=== PATIENT | female | born 1955 | race Caucasian/White ===

== ENCOUNTER → 2020-05-25 06:51 | Outpatient (CLI) | payer MEDICARE, SELFPAY ==
[2020-05-25 08:30] LABS: Add Manual Diff / Slide Review NO; Basophils Absolute Auto 0 /uL (0-100); Basophils Percent Auto 0.6 % (0-2); Eosinophils Absolute Auto 100 /uL (0-450); Eosinophils Percent Auto 1.2 % (2-4); Hematocrit 44.4 % (36-46); Lymphocytes Absolute Auto 2500 /uL (1100-4500); Lymphocytes Percent Auto 29.7 % (25-40); Mean Corpuscular HGB Conc 33.8 % (30-36); Mean Corpuscular Hemoglobin 30.3 PG (26-34); Mean Corpuscular Volume 89.8 fL (80-100); Monocytes Absolute Auto 400 /uL (0-900); Neutrophils Absolute Auto 5300 /uL (1500-7000); Neutrophils Percent Auto 63.5 % (50-75); Platelet Count 368 X10^3/uL (150-400); Red Blood Cell Count 4.95 X10^6/uL (4.0-5.2); Red Cell Distribution Width 13.5 % (11.6-14.8); White Blood Cell Count 8.3 X10^3/uL (4.5-11.0)
[2020-05-25 08:47] LABS: Alanine Aminotransferase 21 IU/L (<35); Albumin 4.8 g/dL (3.5-5.0); Albumin Globulin Ratio 1.5 (1.0-2.8); Alkaline Phosphatase 83 U/L (38-126); Aspartate Aminotransferase 26 IU/L (14-36); BUN Creatinine Ratio 13.1 (6-22); Bilirubin Total 1.4 mg/dL (0.2-1.3); Blood Urea Nitrogen 11 mg/dL (7-17); Calcium 9.9 mg/dL (8.4-10.2); Carbon Dioxide 27 mmol/L (22-32); Chloride 107 mmol/L (98-107); Cholesterol 271 mg/dL (140-199); Estimated Glomerular Filt Rate > 60.0 mL/min (>60); Globulin 3.1 g/dL (1.7-4.1); Glucose 146 mg/dL (80-110); HDL Cholesterol 65 mg/dL (40-60); HEMOLYSIS < 15 (0-50); LDL Cholesterol Calculated 178 mg/dL (<100); Potassium 3.8 mmol/L (3.4-5.1); Sodium 141 mmol/L (137-145); Total Protein 7.9 g/dL (6.3-8.2); Triglycerides 142 mg/dL (35-150)
[2020-05-25 09:19] LABS: Free T4, Direct Thyroxine 1.04 ng/dL (0.78-2.19)
[2020-05-25 09:33] LABS: Thyroid Stimulating Hormone 2.53 uIU/mL (0.47-4.68)
== END ==
PROVIDERS: PCP Registered Nurse; Referring Provider Registered Nurse; Visit Provider Registered Nurse
DX: F32.9 Major depressive disorder, single episode, unspecified (principal); Z82.49 Family history of ischemic heart disease and other diseases of the circulatory system; F41.9 Anxiety disorder, unspecified
CPT/HCPCS: 36415; 80053; 80061; 84439; 84443; 85025

== ENCOUNTER → 2020-07-27 08:44 | Outpatient (CLI) | payer MEDICARE, SELFPAY ==
[2020-07-27 09:35] LABS: Hemoglobin A1C% w Est Avg Glu 5.5 % (4.0-6.0)
== END ==
PROVIDERS: PCP Registered Nurse; Referring Provider Registered Nurse; Visit Provider Registered Nurse
DX: R73.01 Impaired fasting glucose (principal)
CPT/HCPCS: 36415; 83036

== ENCOUNTER 2023-03-30 06:15 | Emergency (ER) | payer MEDICARE, SELFPAY ==
[2023-03-30] VITALS (55 sets, daily range): BP systolic 78–154; BP diastolic 49–106; PULSE 60–159; RESP 11–31; TEMP 36.6; O2SAT 93–100; BMI 24.0
--- NOTE | 2023-03-30 06:43 | DI.RAD.S_ITS ---
PROCEDURE: XR CHEST 1V INDICATIONS: new a fib with RVR TECHNIQUE: One view of the chest was acquired. COMPARISON: [facility], , CHEST 2 VIEW, 11/01/2014, 8:30. FINDINGS: Surgical changes and devices: None. Lungs and pleura: Right upper lung zone is lucent suggesting emphysema. Lungs are clear. No pleural effusions or pneumothorax. Mediastinum: Mediastinal contours appear normal. Heart size is normal. Bones and chest wall: No suspicious bony lesions. Overlying soft tissues appear unremarkable. IMPRESSION: No acute cardiopulmonary abnormality is seen. No significant discrepancy with the clam shucker radiology preliminary report. Dictated by: Akiko Krishnamurthy M.D. on 03/30/2023 at 8:32 Approved by: Akiko Krishnamurthy M.D. on 03/30/2023 at 8:32
[2023-03-30 06:50] LABS: Add Manual Diff / Slide Review NO; Basophils Absolute Auto 100 /uL (0-100); Basophils Percent Auto 1.1 % (0-2); Eosinophils Absolute Auto 200 /uL (0-450); Hemoglobin 13.5 g/dL (12.0-16.0); Lymphocytes Absolute Auto 3000 /uL (1100-4500); Mean Corpuscular HGB Conc 32.8 % (30-36); Mean Corpuscular Hemoglobin 29.4 PG (26-34); Mean Corpuscular Volume 89.6 fL (80-100); Monocytes Absolute Auto 300 /uL (0-900); Monocytes Percent Auto 3.7 % (3-14); Neutrophils Absolute Auto 3700 /uL (1500-7000); Neutrophils Percent Auto 51.2 % (50-75); Platelet Count 316 X10^3/uL (150-400); Red Blood Cell Count 4.58 X10^6/uL (4.0-5.2); Red Cell Distribution Width 13.4 % (11.6-14.8); White Blood Cell Count 7.2 X10^3/uL (4.5-11.0)
[2023-03-30 06:57] LABS: Alanine Aminotransferase 40 IU/L (<35); Albumin 4.3 g/dL (3.5-5.0); Albumin Globulin Ratio 1.8 (1.0-2.8); Alkaline Phosphatase 57 U/L (38-126); BUN Creatinine Ratio 11.1 (6-22); Bilirubin Total 0.8 mg/dL (0.2-1.3); Blood Urea Nitrogen 8 mg/dL (7-17); Carbon Dioxide 17 mmol/L (22-32); Chloride 106 mmol/L (98-107); Estimated Glomerular Filt Rate > 60 mL/min (>60); Globulin 2.4 g/dL (1.7-4.1); Glucose 294 mg/dL (80-110); Potassium 3.3 mmol/L (3.4-5.1); Sodium 139 mmol/L (137-145); Total Protein 6.7 g/dL (6.3-8.2)
[2023-03-30 06:59] LABS: D Dimer 500 ng/ml (<500)
[2023-03-30] MEDS: dilTIAZem 5 MG/ML SDV 20 MG IV (07:05)
[2023-03-30 07:08] LABS: NT-proBNP (BNP-Adult 18+) 175 pg/mL (<125); Troponin I < 0.012 ng/mL (0.01-0.034)
[2023-03-30] MEDS: LORazepam 2 MG/ML INJ 1 MG IV (07:23)
[2023-03-30] MEDS: DILTIAZEM 125 MG/125 ML PIGGYBACK IV (07:33)
--- NOTE | 2023-03-30 07:33 | ED.ARRPALP ---
HPI - Arrhythmia/Palpitations General Chief Complaint: Arrhythmia/Palpitations Stated Complaint: rapid heart rate Time Seen by Provider: 03/30/23 06:20 Source: patient, family and EMS Mode of arrival: EMS Limitations: no limitations History of Present Illness HPI narrative: Patient is a 67-year-old female. Has no diagnosed medical problems. Does not go to the doctor. Was at her normal state of health when she woke up this morning. Shortly after waking up she suddenly started to feel like her heart was beating fast. When EMS arrived they found her to have a heart rate into the 260's. She received 6 mg of adenosine and then 12 mg of adenosine. This improved her heart rate to less than 200. She then received 25 mg of diltiazem. Her heart rate improved to the 100s to 130s. Upon arrival here heart rate was elevated once again. She is feeling the palpitations. Some minor chest discomfort. No lightheadedness. This is never happened to her before. She does have history of anxiety in his also feeling very anxious. Related Data Home Medications Medication Instructions Recorded Confirmed multivitamin 1 tab PO DAILY 05/18/20 06/01/20 Previous Rx's Medication Instructions Recorded citalopram 20 mg tablet 20 mg PO DAILY anxiety with 05/18/20 depression #30 tabs atorvastatin 20 mg tablet 20 mg PO BEDTIME Hyperlipidemia 05/26/20 #30 tabs apixaban 5 mg tablet (Eliquis) 5 mg PO BID 60 days #120 tabs 03/30/23 metoprolol succinate 25 mg 25 mg PO DAILY #30 tabs 03/30/23 tablet,extended release 24 hr Allergies Allergy/AdvReac Type Severity Reaction Status Date / Time No Known Drug Allergies Allergy Unverified 06/01/20 09:01 Review of Systems Constitutional Constitutional: Reports system reviewed and no additional complaints, except as documented Cardiovascular Cardiovascular: Reports system reviewed and no additional complaints, except as documented Respiratory Respiratory: Reports system reviewed and no additional complaints, except as documented Gastrointestinal Gastrointestinal: Reports system reviewed and no additional complaints, except as documented Integumentary/Breasts Skin/Breast: Reports system reviewed and no additional complaints, except as documented Hematologic/Lymphatic On Anticoagulants: No Patient History Social History Smoking Status: Former smoker Tobacco: How many years used: 10 second hand exposure: No alcohol intake: current (rare) substance use type: former substance user (Quit marijuana last month) Smoking Status: Former smoker Exam Initial Vital Signs Initial Vital Signs: Vital Signs Temperature 97.9 F 03/30/23 06:15 Pulse Rate 155 H 03/30/23 06:15 Respiratory Rate 22 03/30/23 06:15 Blood Pressure 143/81 H 03/30/23 06:15 Pulse Oximetry 98 03/30/23 06:15 Oxygen Delivery Method Room Air 03/30/23 06:15 HENMT Head: normal to inspection and normocephalic Resp Effort & Inspection: normal respiratory effort Auscultation: clear to auscultation bilaterally Cardio Rate: tachycardic Rhythm: regular rhythm GI Inspection: normal to inspection Neuro General: patient alert and moves all extremities Extrem General: capillary refill normal Procedures Cardioversion Consent Signed: Yes Indication: A flutter Stability: Stable Number of attempts (shocks): 2 Joules used: 120 and 200 Cardiac rhythm post-cardioversion: A flutter Procedural Sedation Consent signed: Yes Time out performed: Yes Indication: cardioversion ASA Class: II Mallampati Airway Classification: Class II Fentanyl: IV Fentanyl dose (mcg): 12 IV Propofol dose (mg): 50 Complications: none Scores [facility] [place] coma scale eye opening: Spontaneous [place] coma scale verbal response: Orientated [place] coma scale motor response: Obey commands [place] coma scale total score: 15 Course Orders Ordered: ED Orders 03/30/23 06:25 Complete Blood Count AUTO DIFF Stat Comprehensive Metabolic Panel Stat D Dimer Stat NT-proBNP (BNP-Adult 18+) Stat Troponin I Stat 03/30/23 06:43 XR chest 1V Stat 03/30/23 08:20 EKG-12 Lead Stat 03/30/23 09:07 EKG-12 Lead Stat Apixaban (Apixaban 5 Mg Tablet) 5 mg PO NOW ONE Stop: 03/30/23 09:56 DILTIAZEM (Diltiazem 125 Mg/125 Ml-D5w) 125 mg in 125 mls @ 5 mls/hr IV TITRATE YURI; Protocol Last Titration: 03/30/23 09:11 Dose: 0 mg/hr, 0 mls/hr Documented By: Titration: 03/30/23 08:15 Dose: 5 mg/hr, 5 mls/hr Documented By: Titration: 03/30/23 08:04 Dose: 0 mg/hr, 0 mls/hr Documented By: Admin: 03/30/23 07:33 Dose: 5 mg/hr, 5 mls/hr Documented By: JERSON Sodium Chloride (Normal Saline 0.9%) 1,000 mls @ 125 mls/hr IV CONT YURI Last Infusion: 03/30/23 08:50 Dose: 125 mls/hr Documented By: Infusion: 03/30/23 08:07 Dose: 999 mls/hr Documented By: Admin: 03/30/23 08:01 Dose: 125 mls/hr Documented By: JERSON Discontinued Medications Diltiazem HCl (Diltiazem 5 Mg/Ml Sdv) 20 mg IV NOW ONE Stop: 03/30/23 06:57 Last Admin: 03/30/23 07:05 Dose: 20 mg Documented By: EILEEN Fentanyl (Fentanyl 100 Mcg/2 Ml Inj) 12.5 mcg IV NOW ONE Stop: 03/30/23 07:35 Last Admin: 03/30/23 08:07 Dose: 12.5 mcg Documented By: JERSON Lorazepam (Lorazepam 2 Mg/Ml Inj) 1 mg IV NOW ONE Stop: 03/30/23 06:57 Last Admin: 03/30/23 07:23 Dose: 1 mg Documented By: JERSON Metoprolol Succinate (Metoprolol Er 25 Mg Tablet) 25 mg PO NOW ONE Stop: 03/30/23 08:58 Last Admin: 03/30/23 09:12 Dose: 25 mg Documented By: JERSON Propofol (Propofol 200 Mg/20 Ml Vial) 100 mg IV NOW ONE Stop: 03/30/23 07:35 Last Admin: 03/30/23 08:09 Dose: 50 mg Documented By: JERSON Vital Signs Vital signs: Vital Signs - 8 hr 03/30/23 06:15 03/30/23 06:22 03/30/23 06:27 Temperature 97.9 F Pulse Rate 155 H 146 H 152 H Respiratory Rate 22 31 H 16 Blood Pressure 143/81 H Pulse Oximetry 98 99 98 Oxygen Delivery Method Room Air Oxygen Flow Rate 03/30/23 06:27 03/30/23 06:30 03/30/23 06:31 Temperature Pulse Rate 146 H 159 H Respiratory Rate 21 19 Blood Pressure 143/81 H Pulse Oximetry 99 98 Oxygen Delivery Method Oxygen Flow Rate 03/30/23 06:31 03/30/23 07:00 03/30/23 07:00 Temperature Pulse Rate 148 H Respiratory Rate 16 Blood Pressure 131/106 H 124/74 Pulse Oximetry 100 Oxygen Delivery Method Oxygen Flow Rate 03/30/23 07:05 03/30/23 07:09 03/30/23 07:09 Temperature Pulse Rate 148 H 131 H Respiratory Rate 15 Blood Pressure 124/74 107/57 L Pulse Oximetry 99 Oxygen Delivery Method Oxygen Flow Rate 03/30/23 07:10 03/30/23 07:10 03/30/23 07:15 Temperature Pulse Rate 117 H Respiratory Rate 18 Blood Pressure 110/54 L 107/62 Pulse Oximetry 98 Oxygen Delivery Method Oxygen Flow Rate 03/30/23 07:15 03/30/23 07:20 03/30/23 07:20 Temperature Pulse Rate 123 H 125 H Respiratory Rate 19 16 Blood Pressure 112/79 Pulse Oximetry 99 99 Oxygen Delivery Method Room Air Room Air Oxygen Flow Rate 03/30/23 07:25 03/30/23 07:25 03/30/23 07:27 Temperature Pulse Rate 136 H 141 H Respiratory Rate 22 15 Blood Pressure 110/82 Pulse Oximetry 99 99 Oxygen Delivery Method Oxygen Flow Rate 03/30/23 07:27 03/30/23 07:30 03/30/23 07:30 Temperature Pulse Rate 134 H Respiratory Rate 12 Blood Pressure 124/75 117/68 Pulse Oximetry 98 Oxygen Delivery Method Oxygen Flow Rate 03/30/23 07:33 03/30/23 07:33 03/30/23 07:36 Temperature Pulse Rate 136 H 144 H Respiratory Rate 19 16 Blood Pressure 101/64 Pulse Oximetry 98 98 Oxygen Delivery Method Room Air Oxygen Flow Rate 03/30/23 07:36 03/30/23 07:39 03/30/23 07:39 Temperature Pulse Rate 141 H Respiratory Rate 12 Blood Pressure 114/76 123/73 Pulse Oximetry 99 Oxygen Delivery Method Oxygen Flow Rate 03/30/23 07:42 03/30/23 07:42 03/30/23 07:45 Temperature Pulse Rate 140 H Respiratory Rate 13 Blood Pressure 102/64 97/68 Pulse Oximetry 98 Oxygen Delivery Method Room Air Oxygen Flow Rate 03/30/23 07:45 03/30/23 07:49 03/30/23 07:49 Temperature Pulse Rate 139 H 119 H Respiratory Rate 14 Blood Pressure 108/72 Pulse Oximetry 97 98 Oxygen Delivery Method Oxygen Flow Rate 03/30/23 07:51 03/30/23 07:51 03/30/23 07:54 Temperature Pulse Rate 124 H Respiratory Rate Blood Pressure 110/86 111/79 Pulse Oximetry 98 Oxygen Delivery Method Oxygen Flow Rate 03/30/23 07:54 03/30/23 07:57 03/30/23 07:57 Temperature Pulse Rate 133 H 139 H Respiratory Rate Blood Pressure 120/73 Pulse Oximetry 98 99 Oxygen Delivery Method Room Air Nasal Cannula Oxygen Flow Rate 2 03/30/23 08:00 03/30/23 08:00 03/30/23 08:03 Temperature Pulse Rate 138 H Respiratory Rate Blood Pressure 154/60 H 118/72 Pulse Oximetry 97 Oxygen Delivery Method Nasal Cannula Oxygen Flow Rate 2 03/30/23 08:03 03/30/23 08:06 03/30/23 08:06 Temperature Pulse Rate 144 H 131 H Respiratory Rate Blood Pressure 98/65 Pulse Oximetry 98 99 Oxygen Delivery Method Oxygen Flow Rate 03/30/23 08:09 03/30/23 08:09 03/30/23 08:12 Temperature Pulse Rate 131 H Respiratory Rate Blood Pressure 97/49 L 84/63 L Pulse Oximetry 98 Oxygen Delivery Method Oxygen Flow Rate 03/30/23 08:12 03/30/23 08:15 03/30/23 08:15 Temperature Pulse Rate 122 H 116 H Respiratory Rate Blood Pressure 80/50 L Pulse Oximetry 93 93 Oxygen Delivery Method Nasal Cannula Oxygen Flow Rate 2 03/30/23 08:17 03/30/23 08:17 03/30/23 08:18 Temperature Pulse Rate 116 H Respiratory Rate Blood Pressure 93/54 L 94/54 L Pulse Oximetry 96 Oxygen Delivery Method Nasal Cannula Oxygen Flow Rate 2 03/30/23 08:18 03/30/23 08:21 03/30/23 08:21 Temperature Pulse Rate 114 H 106 H Respiratory Rate 15 Blood Pressure 78/52 L Pulse Oximetry 96 96 Oxygen Delivery Method Nasal Cannula Nasal Cannula Oxygen Flow Rate 2 2 03/30/23 08:23 03/30/23 08:23 03/30/23 08:24 Temperature Pulse Rate 112 H 108 H Respiratory Rate 18 13 Blood Pressure 87/66 L Pulse Oximetry 97 97 Oxygen Delivery Method Nasal Cannula Oxygen Flow Rate 2 03/30/23 08:24 03/30/23 08:27 03/30/23 08:27 Temperature Pulse Rate 116 H Respiratory Rate 20 Blood Pressure 95/63 98/67 Pulse Oximetry 98 Oxygen Delivery Method Nasal Cannula Oxygen Flow Rate 2 03/30/23 08:30 03/30/23 08:30 03/30/23 08:33 Temperature Pulse Rate 113 H 117 H Respiratory Rate 16 11 L Blood Pressure 113/59 L Pulse Oximetry 98 98 Oxygen Delivery Method Nasal Cannula Nasal Cannula Oxygen Flow Rate 2 2 03/30/23 08:33 03/30/23 08:36 03/30/23 08:36 Temperature Pulse Rate 112 H Respiratory Rate 12 Blood Pressure 95/58 L 93/60 Pulse Oximetry 98 Oxygen Delivery Method Nasal Cannula Oxygen Flow Rate 2 03/30/23 08:39 03/30/23 08:39 03/30/23 08:43 Temperature Pulse Rate 108 H Respiratory Rate 14 Blood Pressure 108/65 126/60 Pulse Oximetry 99 Oxygen Delivery Method Room Air Oxygen Flow Rate 03/30/23 08:43 03/30/23 08:45 03/30/23 08:45 Temperature Pulse Rate 109 H 112 H Respiratory Rate 17 17 Blood Pressure 118/62 Pulse Oximetry 98 98 Oxygen Delivery Method Room Air Oxygen Flow Rate 03/30/23 08:48 03/30/23 08:48 03/30/23 08:51 Temperature Pulse Rate 105 H Respiratory Rate 14 Blood Pressure 124/55 L 121/59 L Pulse Oximetry 98 Oxygen Delivery Method Room Air Oxygen Flow Rate 03/30/23 08:51 03/30/23 08:54 03/30/23 08:54 Temperature Pulse Rate 104 H 107 H Respiratory Rate 13 14 Blood Pressure 105/57 L Pulse Oximetry 98 97 Oxygen Delivery Method Room Air Oxygen Flow Rate 03/30/23 09:00 03/30/23 09:01 03/30/23 09:01 Temperature Pulse Rate 66 67 Respiratory Rate 11 L 14 Blood Pressure 104/59 L Pulse Oximetry 98 98 Oxygen Delivery Method Room Air Oxygen Flow Rate 03/30/23 09:05 03/30/23 09:05 03/30/23 09:10 Temperature Pulse Rate 71 Respiratory Rate 24 Blood Pressure 113/56 L 119/61 Pulse Oximetry 98 Oxygen Delivery Method Room Air Oxygen Flow Rate 03/30/23 09:10 03/30/23 09:12 Temperature Pulse Rate 70 67 Respiratory Rate 14 Blood Pressure 119/61 Pulse Oximetry 98 Oxygen Delivery Method Room Air Oxygen Flow Rate MDM - Arrhythmia/Palpitations Lab Data Attestation: I reviewed the patient's lab results. 03/30/23 06:25 03/30/23 06:25 Labs: Lab Results 03/30/23 Range/Units 06:25 WBC 7.2 (4.5-11.0) X10^3/uL RBC 4.58 (4.0-5.2) X10^6/uL Hgb 13.5 (12.0-16.0) g/dL Hct 41.0 (36-46) % MCV 89.6 (80-100) fL MCH 29.4 (26-34) PG MCHC 32.8 (30-36) % RDW 13.4 (11.6-14.8) % Plt Count 316 (150-400) X10^3/uL Neut % (Auto) 51.2 (50-75) % Lymph % (Auto) 41.0 H (25-40) % Henderson % (Auto) 3.7 (3-14) % Eos % (Auto) 3.0 (2-4) % Baso % (Auto) 1.1 (0-2) % Neut # (Auto) 3700 (8505-5903) /uL Lymph # (Auto) 3000 (9735-7991) /uL [place] # (Auto) 300 (0-900) /uL Eos # (Auto) 200 (0-450) /uL Baso # (Auto) 100 (0-100) /uL D-Dimer 500 (<500) ng/ml Sodium 139 (137-145) mmol/L Potassium 3.3 L (3.4-5.1) mmol/L Chloride 106 (98-107) mmol/L Carbon Dioxide 17 L (22-32) mmol/L BUN 8 (7-17) mg/dL Creatinine 0.72 (0.52-1.04) mg/dL Estimated GFR > 60 (>60) mL/min BUN/Creatinine Ratio 11.1 (6-22) Glucose 294 H (80-110) mg/dL Calcium 9.0 (8.4-10.2) mg/dL Total Bilirubin 0.8 (0.2-1.3) mg/dL AST TNP ALT 40 H (<35) IU/L Alkaline Phosphatase 57 (38-126) U/L Troponin I < 0.012 (0.01-0.034) ng/mL NT-Pro-B Natriuret Pep 175 H (<125) pg/mL Total Protein 6.7 (6.3-8.2) g/dL Albumin 4.3 (3.5-5.0) g/dL Globulin 2.4 (1.7-4.1) g/dL Albumin/Globulin Ratio 1.8 (1.0-2.8) Imaging Data Chest x-ray: Radiologist's Impresson: PROCEDURE: XR CHEST 1V INDICATIONS: new a fib with RVR TECHNIQUE: One view of the chest was acquired. COMPARISON: [facility], , CHEST 2 VIEW, 11/01/2014, 8:30. FINDINGS: Surgical changes and devices: None. Lungs and pleura: Right upper lung zone is lucent suggesting emphysema. Lungs are clear. No pleural effusions or pneumothorax. Mediastinum: Mediastinal contours appear normal. Heart size is normal. Bones and chest wall: No suspicious bony lesions. Overlying soft tissues appear unremarkable. IMPRESSION: No acute cardiopulmonary abnormality is seen. 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 ECG Data Attestation: I personally reviewed and interpreted this ECG as follows: Interpretation: AFib/flutter. Ventricular rate 129 Normal axis Normal QRS Nonspecific ST T wave changes AFib Ventricular rate 101 Normal axis Normal QRS No ST T wave changes Sinus rhythm Ventricular rate is 71 Normal axis Normal QRS Normal QTC No ST T wave changes MDM Narrative Medical decision making narrative: Attempted cardioversion however we were unsuccessful. It did improve her heart rate somewhat but was still in AFib. There were periods of time where I considered that it was a flutter however once her heart rate improved it was clearly AFib. She was placed on a Cardizem drip. Her heart improved and then eventually converted to sinus rhythm. She was given a dose of oral metoprolol. She was observed for greater than 30 minutes without return of AFib. Plan will be to discharge home on metoprolol. Also start her on anticoagulation. She was advised to contact her primary care doctor for follow-up. She expressed understanding and agreement with plan. Discharge Plan Departure Patient Disposition: Home Clinical Impression: Atrial fibrillation Instructions: DI for Atrial Fibrillation Activity Restrictions/Additional Instructions: I do recommend that you contact your primary care doctor for a follow-up as your most likely going to need a referral to see Cardiology. Start the metoprolol once a day as directed. We need to put you on a blood thinner called Eliquis/apixaban. I highly recommend that you Google? Eliquis co-pay card? online. You can fill out the information and get the numbers and take it to the pharmacy with you. This drastically reduces the cost of this medication that can be very expensive. Return to the emergency department for new or worsening symptoms. Prescriptions: New metoprolol succinate 25 mg tablet extended release 24 hr 25 mg PO DAILY Qty: 30 2RF Eliquis 5 mg tablet 5 mg PO BID 60 Days Qty: 120 0RF No Action atorvastatin 20 mg tablet 20 mg PO BEDTIME Qty: 30 2RF multivitamin Tablet 1 tab PO DAILY citalopram 20 mg tablet 20 mg PO DAILY Qty: 30 2RF Referrals: Zuly Brower ARNP [Primary Care Provider] - Stand Alone Forms: Patient Portal/API
[2023-03-30] MEDS: SODIUM CHLORIDE 0.9% 1,000 ML 125 ML IV (08:01)
[2023-03-30] MEDS: fentaNYL 100 MCG/2 ML INJ 12.5 MCG IV (08:07)
[2023-03-30] MEDS: propofoL 200 MG/20 ML VIAL 100 MG IV (08:09)
--- NOTE | 2023-03-30 08:18 | PC.NURSE ---
At 0804 time out was called for a cardioversion and diltiazem medication was stopped. RT, RN, and Dr. Mcnamara at bedside with patient. Consent signed at bedside. @0811 patient was synchronized with 120J shock. PT's heart rate had no change in rhythm, and at 0812pt was synchronized with 200J shock. Pt's heart rate did not change rhythm. Dr. Mcnamara called the procedure as finished and patient's diltiazem was restarted at 0815. @0815 pt's saturation dropped to 92% on 2L NC. Jaw thrust was performed and patient maintained breathing with no further breathing complications. Pt was hypotensive at 0818 (and she was placed in trandelenburged position. IV fluids running (see MAR). Pt's spouse Esteban is at bedside @0825.
[2023-03-30] MEDS: METOPROLOL ER 25 MG TABLET PO (09:12)
[2023-03-30] MEDS: APIXABAN 5 MG TABLET PO (10:09)
[2023-03-31 14:54] LABS: HEMOLYSIS < 15 (0-50)
[2023-03-31 14:55] LABS: Aspartate Aminotransferase 59 IU/L (14-36)
== END 2023-03-30 10:40 | disposition home or self-care (01) ==
PROVIDERS: Emergency Medicine; Emergency Provider Emergency Medicine; PCP Registered Nurse
DX: I48.91 Unspecified atrial fibrillation (principal)
CPT/HCPCS: 71045; 80053; 83880; 84484; 85025; 85379; 92960; 93005; 96365; 96375; 96376; 99152; 99284; 99285; J2060; J2704; J3010

== ENCOUNTER → 2023-05-03 07:42 | Outpatient (CLI) | payer MEDICARE, SELFPAY | LOC: CAR 07:43 | PROVIDERS: PCP Family Medicine; Referring Provider Family Medicine; Visit Provider Family Medicine | DX: I48.91 Unspecified atrial fibrillation (principal); I48.92 Unspecified atrial flutter | CPT/HCPCS: 93246 ==

== ENCOUNTER → 2023-11-22 08:00 | Outpatient (CLI) | payer MEDICARE, SELFPAY ==
--- NOTE | 2023-11-22 | DI.ECHO.S_ITS ---
[facility] : : [address] : [place] : : [id number] : : Phone: [phone] Echocardiogram Report + + :Name: WANDA MELVIN Study Date: 11/22/2023 Height: 64 in : :[facility] ReadingLocation: Weight: 140 lb : : Gender: Female BSA: 1.7 m2 : :: 1955 Age: 68 yrs BP: 143/88 mmHg: :Reason For Study: ATRIAL FIBRILLATION : :Ordering Physician: TROY, : :LUDMILA Ramirez Performed By: Debbie Shay : :Referring: LUDMILA ALICIA : + + Interpretation Summary The patient was in sinus rhythm with heart rates between 65-70 bpm during the exam. The ejection fraction is estimated to be 55-60%. Diastolic function could not be accurately assessed due to contradictory data. The left atrium is mildly dilated. The right ventricle is normal in size and function. No significant valvular abnormalities. Pulmonary artery pressures cannot be estimated because of the lack of a measurable TR jet velocity but the IVC suggests a CVP of around 3 mmHg. Procedure: A two-dimensional transthoracic echocardiogram with color flow and Doppler was performed. The study quality was technically adequate. There is no prior echocardiogram noted for this patient. The patient was in sinus rhythm with heart rates between 65-70 bpm during the exam. Left Ventricle: The left ventricle is normal in size and wall thickness. The ejection fraction is estimated to be 55-60%. Diastolic function could not be accurately assessed due to contradictory data. Right Ventricle: The right ventricle is normal in size and function. Atria: The left atrium is mildly dilated. Right atrial size is normal. There is no Doppler evidence for an interatrial shunt. Mitral Valve: The mitral valve is normal in structure and function. There is trace mitral regurgitation. Aortic Valve: The aortic valve is trileaflet. The aortic valve opens well. There is no aortic valve stenosis. No aortic regurgitation is present. Tricuspid Valve: The tricuspid valve is normal in structure and function. There is trace tricuspid regurgitation. Pulmonary artery pressures cannot be estimated because of the lack of a measurable TR jet velocity but the IVC suggests a CVP of around 3 mmHg. Pulmonic Valve: The pulmonic valve leaflets are thin and pliable; valve motion is normal. There is mild pulmonic regurgitation. Great Vessels: The aortic root is normal size. The dimensions of the ascending aorta are normal. The IVC is of normal diameter and collapses greater than 50% with a sniff. This suggests a low right atrial pressure of 3 mm Hg. Pericardium/ Pleura There is no pericardial effusion. There is no pleural effusion. MMode/2D Measurements & Calculations LVIDd: 4.5 cm LVOT diam: 2.0 cm LVIDs: 3.3 cm Ao root diam: 3.1 cm FS: 27.5 % asc Aorta Diam: 3.4 cm IVSd: 0.90 cm Ao Arch Diam (Prox Trans): 2.6 cm LVPWd: 0.84 cm LV morton. diameter/BSA (cm/m^2): 2.7 LV sys. diameter/BSA (cm/m^2): 1.9 LA A2 area: 18.7 cm2 RA long axis: 5.0 cm LA A4 area: 18.2 cm2 RA area: 14.3 cm2 LA length (vol): 5.0 cm RA vol: 34.5 ml LA vol: 57.9 ml RA : 20.5 ml/m2 LA vol index: 34.4 ml/m2 IVC diam: 1.2 cm RVD1 (basal): 3.6 cm RVD2 (mid): 2.6 cm TAPSE: 2.0 cm Doppler Measurements & Calculations Ao V2 max: 103.3 cm/sec LVOT Max Aldair: 76.6 cm/sec Ao V2 mean: 77.2 cm/sec LV V1 max P.3 mmHg Ao max P.3 mmHg LV V1 VTI: 16.2 cm Ao mean P.6 mmHg VANITA(I,D): 2.2 cm2 Ao V2 VTI: 22.0 cm VANITA(V,D): 2.2 cm2 sev ratio: 0.74 VANITA indexed to BSA (cm^2/m^2): 1.3 MV E max aldair: 43.8 cm/sec TR max aldair: 217.3 cm/sec MV A max aldair: 61.9 cm/sec TR max P.9 mmHg MV E/A: 0.71 PA V2 max: 72.5 cm/sec Med Peak E' Aldair: 4.8 cm/sec PA V2 mean: 51.9 cm/sec E/E' med: 9.2 PA mean P.2 mmHg Lat Peak E' Aldair: 7.5 cm/sec PA pr(Accel): 41.3 mmHg E/E' lat: 5.9 E/e' average: 7.5 MV dec time: 0.22 sec [facility] 48.7 ml Reading Physician:01:42 PM
== END ==
PROVIDERS: PCP Family Medicine; Referring Provider Internal Medicine Cardiovascular Disease; Visit Provider Internal Medicine Cardiovascular Disease
DX: I37.1 Nonrheumatic pulmonary valve insufficiency (principal); I48.91 Unspecified atrial fibrillation
CPT/HCPCS: 93306